=== PATIENT | male | born 1980 ===

== ENCOUNTER 2019-06-06 16:15 | Emergency (ER) | payer OTHER ==
[~2019-06-06] VITALS: Ht 182.9 cm; Wt 99.8 kg
[2019-06-06] MEDS ORDERED: BUTALB-ASPIRIN1 EACH (16:49)
[2019-06-06] MEDS ORDERED: BUTALBIT-ACETA1 EACH PO (18:18)
[2019-06-06] MEDS ORDERED: DICLOFENAC SODI75 MG PO (18:18)
== END 2019-06-06 19:30 | disposition home or self-care (01) ==
LOC: ER 16:15
DX: G44.209 Tension-type headache, unspecified, not intractable (principal)

== ENCOUNTER 2019-08-06 09:45 | Emergency (ER) | payer OTHER ==
[~2019-08-06] VITALS: Ht 182.9 cm; Wt 104.8 kg
[~2019-08-06 09:45] MED LIST: BUTALB-ASPIRIN1 EACH; BUTALBIT-ACETA1 EACH PO; DICLOFENAC SODI75 MG PO
== END 2019-08-06 11:42 | disposition home or self-care (01) ==
LOC: ER 09:45
DX: H66.92 Otitis media, unspecified, left ear (principal); R05 Cough